=== PATIENT | female | born 1940 | race Caucasian/White ===

== ENCOUNTER 2016-11-20 09:49 | Inpatient (IN) | payer OTHER, MEDICARE ==
[~2016-11-20] VITALS: Ht 149.9 cm; Wt 48.1 kg
[2016-11-20] VITALS (7 sets, daily range): BP systolic 124–150; BP diastolic 59–71; PULSE 64–76; TEMP 36.6–37.1; O2SAT 92–96; Ht 149.9 cm; Wt 48.1 kg
[2016-11-20] MEDS ORDERED: TRAMADOL HCL 50 MG TAB PO PRN (12:30)
[2016-11-20] MEDS ORDERED: ALUMINUM/MAGNESIUM/SIMETH (MAALOX MAX) 30 ML UDC PO PRN (12:30)
[2016-11-20] MEDS ORDERED: MECLIZINE HCL 25 MG TAB PO PRN (12:30)
[2016-11-20] MEDS ORDERED: ONDANSETRON INJ 2 MG/ML 2 ML VIAL IV PRN (12:30)
[2016-11-20] MEDS ORDERED: POLYETHYLENE (MIRALAX) 17 GM PACK PO PRN (12:30)
[2016-11-20] MEDS ORDERED: MAGNESIUM HYDROXIDE SUSP 30 ML UDC PO PRN (12:30)
[2016-11-20] MEDS ORDERED: NITROGLYCERIN 0.4 MG SL PER TAB CHARGE SL PRN (12:30)
[2016-11-20] MEDS ORDERED: CLONAZEPAM 1 MG TAB PO PRN (12:30)
--- NOTE | 2016-11-20 12:52 | History and Physical ---
History & Physical Date & Time of Service: November 20, 2016 at 12:30 Chief Complaint: Pneumonia, Copd Exacerbation Primary Care Physician: Fer Armstrong History of Present Illness Source: patient, family, clinic records, hospital records Patient is a pleasant 76 y/o female, with PMHx of CAD s/p stent placement, tremors, vertigo, anxiety, and GERD, who was a direct admit from [facility] due to collapse left lower lung seen on CT and PNA. Patient presented to [facility] on 11/19 with complaints of fatigue, weight loss, poor appetite, and SOB over the last month or so. Patient was most recently placed on Doxycycline on November 10 for PNA treatment. Prior to that, patient was diagnosed w/ the flu on . She was prescribed Tamiflu, but never filled the prescription. Patient states she does not feel much improved since her admission at [facility] yesterday. She admits to a cough. She states she is coughing up sputum, but does not know the color because she swallows it. She admits to SOB; she does NOT wear O2 supplement at home. She denies h/o COPD or asthma. +night sweats; 2 episodes of night sweats last evening. Patient denies any fever, chills, lightheadedness, dizziness, vision changes, CP, palpitations, edema, wheezing, abdominal pain, nausea, vomiting, diarrhea, urinary symptoms, melena, numbness/ tingling, weakness, muscle/joint pain, anxiety/depression, active bleeding, or new skin discoloration/changes. Past Medical/Surgical History PMHx: CAD s/p stent placement tremors vertigo anxiety GERD Surgical Hx: partial thyroidectomy appendectomy cholecystectomy tonsillectomy Family History Father- lung cancer Social History Smoking Status: Unknown if Ever Smoked Marital Status: Housing status: lives with family Allergies Coded Allergies: Cephalexin (Verified Adverse Reaction, Unknown, Seizure, 11/20/16) Sulfa Antibiotics (Verified Adverse Reaction, Unknown, Seizure, 11/20/16) Physical Exam Vital Signs Date Time Temp Pulse Resp B/P Pulse Ox O2 Delivery O2 Flow Rate FiO2 11/20/16 11:45 36.6 72 16 132/66 95 Nasal Cannula 2.0 General Appearance: no apparent distress, + thin Head: normocephalic, atraumatic Eyes: normal inspection, PERRL ENT: hearing grossly normal Neck: supple Respiratory/Chest: no respiratory distress, no accessory muscle use, + decreased breath sounds (left lung base ) Cardiovascular: + systolic murmur, + pertinent finding (irregular rhythm- rate controlled) Abdomen/GI: normal bowel sounds, non tender, soft Back: normal inspection Extremities/Musculoskelatal: no calf tenderness, no pedal edema Neurologic/Psych: alert, normal mood/affect, oriented x 3 Skin: normal color, warm/dry, no rash Impression Assessment and Plan 76 y/o female, with PMHx of CAD s/p stent placement, tremors, vertigo, anxiety, and GERD, who was a direct admit from [facility] due to collapse left lower lung seen on CT and PNA: PNA/left lower lung collapse: - Admit to tele for cardiac monitoring - Continue IV Levaquin (started on 11/19 at [facility], last dose 11/19) - Continue Prednisone 40 mg roberto (last dose of 40 mg on 11/19 at [facility]) - O2 protocol, wean as tolerated- does NOT wear O2 at home - DuoNebs QID and q2 hrs PRN - Influenza negative per [facility] records - BCx obtained at [facility] on 11/19- NGTD per report - Obtain sputum cultures - f/u CXR tomorrow AM - Pulmonary consulted, appreciate recommendations - Obtain CBC and PRP- further management pending results -- Reviewed lab work from [facility]- WNL CAD s/p stent placement: ASA 81 mg daily, Simvastatin 40 mg daily 4.2 cm ascending aortic aneurysm and 3.4 cm aneurysmal dilatation to distal thoracic aorta: - Patient denies knowledge of this - Consult vascular surgery, appreciate recommendations Anxiety: Klonopin 1 mg BID PRN anxiety Tremors: Propranolol 80 mg daily, Primidone 50 mg BID Vertigo: Meclizine 25 mg TID PRN dizziness GERD: Protonix daily GI Prophylaxis: Maalox PRN, IV Zofran PRN, Colace and/or Milk of Mag PRN DVT prophylaxis: Heparin 5000 units SQ q12 hrs, DELFIN and SCDs Code Status: LEVEL I, FULL Dispo: From home, lives w/ family Level of Care Telemetry Advanced Directives Existing Living Will: No Existing Power of Secondary Special Education Teacher: No Resuscitation Status FULL RESUSCITATION VTE Prophylaxis VTE Risk Assessment Done? Y/N: Yes Risk Level: Moderate Given or contraindicated: Unfractionated heparin SQ, T.EAndie Santiago, SCD's
[2016-11-20 13:39] LABS: HEMATOCRIT 41.2 % (37-47); MEAN CELL VOLUME 89.8 fL (80-100); MEAN CORPUSCULAR HEMOGLOBIN 30.5 pg (25-34); MEAN PLATELET VOLUME 9.7 fL (7.4-10.4); PLATELET COUNT 195 K/uL (130-400); RED BLOOD COUNT 4.59 M/uL (4.2-5.4); WHITE BLOOD COUNT 13.74 K/uL (4.8-10.8)
[2016-11-20 13:50] LABS: INR 1.1 (0.9-1.1); PARTIAL THROMBOPLASTIN RATIO 1.1
[2016-11-20] MEDS ORDERED: LEVOFLOXACIN / D5W 750 MG in PREMIXED IN D5W 150 ML IV SCH (14:00)
[2016-11-20 14:15] LABS: CREATININE 0.89 mg/dl (0.60-1.20)
--- NOTE | 2016-11-20 16:12 | Surgery Consultation ---
Consultation Date of Service November 20, 2016. Chief Complaint ascending aortic and thoracic aortic aneurysm History of Present Illness The patient is a 76 year old female with multiple medical problems, admitted with pneumonia and atelectasis, seen in consultation today for ascending aortic aneurysm and distal thoracic aortic aneurysm noted incidentally on CT scan. Pt denies any prior knowledge and states she sees Dr Clemons regularly for cardiac care. Pt admits cough and malaise. Denies VARGHESE, fever, chest pain, SOB, abd pain, N/V, rest pain, claudication, other complaints. Vitals Vital Signs Past 12 Hours Date Time Temp Pulse Resp B/P Pulse Ox O2 Delivery O2 Flow Rate FiO2 11/20/16 15:47 36.9 75 16 150/70 94 Room Air 11/20/16 11:45 36.6 72 16 132/66 95 Nasal Cannula 2.0 Allergies Coded Allergies: Cephalexin (Verified Adverse Reaction, Unknown, Seizure, 11/20/16) Sulfa Antibiotics (Verified Adverse Reaction, Unknown, Seizure, 11/20/16) Problem List Medical Problems: (1) Collapse of left lung Surgical / Medical History Hx Cardiac Surgery: No Hx Abdominal Surgery: Yes (shailesh appy ) Hx Cancer Surgery: No Hx Thoracic Surgery: No Hx Orthopedic: Yes (back) HX Other Surgery: Yes (thyroid) Past Medical/Surgical History: COPD, Heart Disease, Hypertension Family History No hx of aneurysm per pt Social History Smoking Status: Unknown if Ever Smoked Hx Tobacco Use In Past Year?: No Hx Alcohol Use - Type & Amnt: Yes (beer once in a while ) Hx Substance Use -Type & Amnt: No Review of Systems Constitutional: + malaise, No chills, No fever Eyes: No visual changes ENMT: No sore throat Respiratory: + VIRAMONTES, + cough, No hemoptysis, No short of breath Cardiovascular: No chest pain, No edema, No intermittent claudication, No palpitations, No syncope Gastrointestinal: No abdominal pain, No nausea, No vomiting Neurologic: No dizziness, No headache, No numbness, No tingling Physical Exam Constitutional: General Apperance: heathly-appearing, well-nourished, well-developed Level of Distress: NAD Psychiatric: Mental Status: active & alert, normal mood, normal affect Orientation: oriented except where noted, to time, to place, to person Memory: recent memory normal, remote memory normal Head: normocephalic, atraumatic Eyes: EOM: EOMI ENMT: normal ENT inspection, hearing grossly normal Neck: supple, trachea midline Lungs: Auscultation: no rhonchi, decreased breath sounds Cardiovascular: Apical Impulse: not displaced Heart Auscultation: RRR, no rubs, no gallops Peripheral Pulses: Pulses: full and equal, in all extremities except if noted Bruits: none appreciated Carotid Pulse: normal on the left, normal on the right Brachial Pulses: normal on the left, normal on the right Radial Pulse: normal on the left, normal on the right Femoral Pulse: normal on the left, normal on the right Posterior Tibialis Pulse: decreased on the left, decreased on the right Dorsalis Pedis Pulse: decreased on the left, decreased on the right Abdomen: Bowel Sounds: normal Inspection & Palpation: soft, non-distended, no tenderness, guarding & rebound Musculoskeletal: normal strength (5/5 throughout), normal tone Extremities: Upper Right: no cyanosis, no edema, no varicosities Upper Left: no cyanosis, no edema, no varicosities Lower Right: no cyanosis, no edema, no varicosities Lower Left: no cyanosis, no edema, no varicosities Neurologic: Cranial Nerves: grossly intact Sensation: grossly intact Assessment and Plan ASSESSMENT and PLAN: ascending aortic aneurysm distal thoracic aortic aneurysm Pt reassured that these do not require surgical intervention presently. D /T large arteries, do recommend abd aortic US to r/o AAA as well. Otherwise, ascending and thoracic aortic aneurysms require f/u CT in 1 year in the office. Discussed with pt, she is agreeable. Please call if needed [email or web address].
--- NOTE | 2016-11-20 16:56 | PULMONARY CONSULTATION ---
DATE OF CONSULTATION: 11/20/2016 TIME: 4:10 p.m. HISTORY OF PRESENT ILLNESS: The patient was seen in room #229, bed #1. She is a 76-year-old female who is not a good historian. She was transferred here today from [facility]. She has not been feeling good for about a month. She states that she went to an urgent care several weeks ago. Reportedly, she was told that she had the flu. Subsequently, however, the flu test was negative. She went again and was told that she had pneumonia. This was approximately November 10. She was given a prescription for doxycycline. The patient was given some steroids as well. Apparently she had a nebulizer. The patient really cannot tell me any details of her illness of significance. She has been having some shortness of breath. She has had a cough. She does not expectorate any sputum at all. For the last 3 nights, she has had night sweats. She states she has been drenched. The chart says she has been losing weight. However, according to the patient, she weighs about the same now within a pound or 2 of what she did 6 months ago. The patient denies having prior lung problems before about a month ago. She states she has never smoked. Prior to that, she had not had any shortness of breath at all. She states she has had some chills but no fevers. The one thing that makes her cough worse is taking deep breaths. She admits that she has trouble swallowing pills. Sometimes it feels like they stick. I could not tell with certainty if she thought she might have swallowed any pills into her lungs. The patient denies ever having had tuberculosis or any exposure to tuberculosis. Her energy level has been very low. She thinks she is depressed. PAST SURGICAL HISTORY: 1. . 2. Partial thyroidectomy. 3. Appendectomy. 4. Cholecystectomy. 5. Tonsillectomy. 6. Back surgery. 7. Cardiac stent. PAST MEDICAL HISTORY: 1. Coronary artery disease. 2. Tremors 3. Vertigo. 4. Anxiety. 5. Depression. 6. GERD. 7. Childbirth x2. 8. Chronic constipation. SOCIAL HISTORY: The patient lives with her daughter. She is a nonsmoker. She has never smoked as noted. Alcohol use is rare. ALLERGIES: SULFA WHICH REPORTEDLY CAUSED THE SEIZURE AND KEFLEX CAUSED THE SEIZURE. I am not certain, however, that that was the exact side effect she had. THE PATIENT TELLS ME SHE IS ALSO ALLERGIC TO LOT OF ENVIRONMENTAL AGENTS INCLUDING GRASS AND DUST. She denied being told that she had asthma, however. FAMILY HISTORY: Mother in her 70s, had heart disease. Father in his 70s, had lung cancer. REVIEW OF SYSTEMS: Negative except for the above-mentioned complaints. Ten systems were reviewed. OCCUPATIONAL HISTORY: The patient worked in a textile factory for quite some time. Subsequently, she worked at a [employer]. MEDICATIONS AT HOME: I am uncertain what medication she was taking before she went to [facility], but it would appear that these would include the followin. Simvastatin 40 mg daily. 2. Propranolol LA 80 mg daily. 3. Aspirin 81 mg daily. 4. Tramadol 50 mg p.r.n. 5. Primidone 50 mg b.i.d. 6. Clonazepam 1 mg b.i.d. p.r.n. 7. Meclizine p.r.n. 8. Omeprazole 20 mg b.i.d. PHYSICAL EXAMINATION: GENERAL: The patient is a 76-year-old female who was pleasant. She was cooperative and alert. She seemed oriented, but she did not act as a good historian. HEENT: Pupils were reactive. Nasal passages were clear. Mouth exam showed some prominence in the upper jaw on the right side, which she states her dentist told her not to worry about and has been unchanged for years. NECK: Palpation of the neck reveals no definite lymph nodes. She has some fullness on the left side of her face, but she states were blocked salivary glands. There seemed to be some asymmetry, greater on the left than the right. CHEST: Normal expansion and development. VITAL SIGNS: Temperature is 36.9 and she has not had any fevers here. Heart rate was 75 per minute. The rhythm was regular. Blood pressure 150/70. Oxygen saturation was 94% on room air. LUNGS: Auscultation of the lung martin revealed them to be almost clear. I did not hear any wheezes, rales or rhonchi at present. At most, there was slightly decreased breath sounds at the left base. Respiratory rate was normal at 16. ABDOMEN: Soft. Bowel sounds were present. There was no tenderness to palpation, masses or organomegaly. EXTREMITIES: Showed no cyanosis, clubbing or edema. LABORATORY DATA: CBC today showed a white count of 13.74. Hemoglobin was 14. Platelets were 195,000. Labs from [facility] showed a white count yesterday was 13. INR was normal at 1.1. PTT was 26. Blood sugar was 130. The BUN was 15 with a creatinine of 0.8. Sodium 138, potassium 4.1, chloride 102, bicarbonate 26. Calcium was 8. Total protein was 6.2. Albumin was 3.1. Liver functions were normal. Troponin was negative. Flu test was negative. IMAGING DATA: EKG showed a normal sinus rhythm. She had some T-wave inversions in the precordial leads V1 through V5. Anterior ischemia was to be considered. CAT scan of the chest done at [facility] showed an area of atelectasis of the left lower lobe. She also had a small ascending aortic aneurysm of 4.2 cm. IMPRESSION: 1. Left lower lobe atelectasis. 2. Night sweats. 3. Malaise of undetermined etiology. COMMENTS AND RECOMMENDATIONS: The patient has not been feeling well for about a month. I do not know if she is a reliable historian. The CAT scan shows some loss of volume in the left lower lobe. This could be the result of her respiratory tract infection with inspissated secretions. She does not sound congested at all; however, when I listen to her. She has some swallowing problems especially with pills. Cannot exclude a foreign body. Cannot exclude an endobronchial obstruction such as neoplasm, although she has never smoked. There is a family history; however, of lung cancer. My suggestions at present would be to treat her with antibiotics and nebulizer treatments. If the area does not resolve, she likely would need bronchoscopy to rule out obstruction. We can continue to observe if she is having further night sweats or not. I am going to order a sed rate. Thank you for asking me to assist in her care.
--- NOTE | 2016-11-20 20:09 | DIAGNOSTIC IMAGING REPORT ---
Abdominal aortic ultrasound CLINICAL HISTORY: screening AAA, presence of thoracic and ascending aneurysms COMPARISON STUDY: None. FINDINGS: Normal caliber abdominal aorta measuring up to 2.6 cm. Iliac arteries are not well visualized due to overlying bowel gas. Mild calcified plaque within the abdominal aorta. IMPRESSION: No evidence for an abdominal aortic aneurysm. Electronically signed by: Erwin Mello M.D. 11/20/2016 8:07 PM Dictated Date/Time: 11/20/2016 8:06 PM
[2016-11-20] MEDS: ALBUT/IPRATROP 3MG/0.5MG NEB 3 ML VIAL INH SCH ×2 (20:16→23:41)
[2016-11-20] MEDS: PRIMIDONE 50 MG TAB PO SCH (20:33)
[2016-11-20] MEDS: SIMVASTATIN 40 MG TAB PO SCH (20:33)
[2016-11-20] MEDS: HEPARIN SOD 5000 UNIT/0.5 ML CARP SQ SCH (21:00)
[2016-11-21] VITALS (11 sets, daily range): BP systolic 116–167; BP diastolic 64–71; PULSE 62–87; TEMP 36.6–36.7; O2SAT 92–98
[2016-11-21 05:27] LABS: BASO % 0.1 %; BASO ABS # 0.01 K/uL (0-0.2); COMPLETE YES; HEMATOCRIT 39.4 % (37-47); IG% 0.3 %; LYMPH % 10.1 %; LYMPH ABS # 1.89 K/uL (1.2-3.4); MEAN CELL VOLUME 90.2 fL (80-100); MEAN CORPUSCULAR HEMOGLOBIN 30.7 pg (25-34); MEAN PLATELET VOLUME 9.8 fL (7.4-10.4); MONO % 7.1 %; NEUT % 82.4 %; PLATELET COUNT 213 K/uL (130-400); RED BLOOD COUNT 4.37 M/uL (4.2-5.4); WHITE BLOOD COUNT 18.78 K/uL (4.8-10.8)
[2016-11-21 05:51] LABS: BUN/CREATININE RATIO 29.5 (10-20); CALCIUM 9.1 mg/dl (8.5-10.1); CREATININE 0.74 mg/dl (0.60-1.20); POTASSIUM 4.2 mmol/L (3.5-5.1)
[2016-11-21] MEDS: ALBUT/IPRATROP 3MG/0.5MG NEB 3 ML VIAL INH SCH ×4 (06:58→19:05)
[2016-11-21] MEDS: ASPIRIN 81 MG ECTAB PO SCH (08:17)
[2016-11-21] MEDS: PROPRANOLOL HCL 80 MG TAB PO SCH (08:18)
[2016-11-21] MEDS: PANTOprazole SOD 40 MG TAB PO SCH (08:18)
[2016-11-21] MEDS: PRIMIDONE 50 MG TAB PO SCH ×2 (08:18→19:57)
[2016-11-21] MEDS: HEPARIN SOD 5000 UNIT/0.5 ML CARP SQ SCH ×2 (08:23→19:59)
--- NOTE | 2016-11-21 08:24 | DIAGNOSTIC IMAGING REPORT ---
CHEST ONE VIEW PORTABLE HISTORY: Left lower lobe PNA/collapse lung COMPARISON: Chest CT 11/20/2016. FINDINGS: The heart is normal in size. Mildly tortuous and calcified thoracic aorta. No pneumothorax. Left retrocardiac density is again noted. This is consistent with left lower lobe collapse. The right lung is clear. IMPRESSION: Left retrocardiac density is again noted and is consistent with left lower lobe collapse. Bronchoscopy is recommended for follow-up and to exclude an obstructing lesion. Electronically signed by: Erwin Mello M.D. 11/21/2016 8:23 AM Dictated Date/Time: 11/21/2016 8:21 AM
--- NOTE | 2016-11-21 09:36 | PULMONARY PROGRESS NOTE ---
DATE: 11/21/2016 DATE: 11/21/2016. TIME: 8:55 a.m. SUBJECTIVE: The patient feels much better. She had a good night. She did not have any significant night sweats. She feels stronger. Occupational therapy worked with the patient and they feel she is doing well. She has not had any significant shortness of breath. The patient states she has not expectorated any phlegm. She is not having any pains. OBJECTIVE: GENERAL: The patient appears comfortable at rest. VITAL SIGNS: Temperature is 36.7. No fevers have been noted since admission. She persists with tremors. Heart rate is 69 per minute. Blood pressure 152/71. Respiratory rate 20. Oxygen saturation is 96% on room air. LUNG: Camacho are clear. DATA: Chest x-ray done this morning again suggests left lower lobe atelectasis. LABORATORY DATA: White count today was elevated at 18.78. Yesterday it was 13.74. Hemoglobin is 13.4. Platelets 213,000. IMPRESSIONS: 1. Left lower lobe atelectasis. 2. Night sweats. 3. Malaise -- improved today. COMMENTS AND RECOMMENDATIONS: The patient clinically is improved. The x-ray however has not improved. We will recheck an x-ray tomorrow. If it is not improved she likely will need bronchoscopy on Wednesday.
--- NOTE | 2016-11-21 11:34 | Hospitalist Progress Note ---
Hospitalist Progress Note Date of Service November 21, 2016. (Ashely Pettit PA-C) Subjective Pt evaluation today including: conversation w/ patient, conversation w/ family , physical exam, chart review, lab review, review of studies Pain: None PO Intake: Good Voiding: no voiding problems The patient was seen and examined this morning. Patient reports feeling well. She feels much improved compared to yesterday. The patient denies any shortness of breath, cough, sputum production, or dyspnea with exertion. She denies any fevers sweats or chills, no chest pain. Her bowels moved for the first time in 3 weeks this morning. Additional Comments: Constitutional: No fever, chills, sweats, fatigue or weakness Eyes: No diplopia, no changes in vision ENT: No sore throat, tinnitus, or trouble swallowing Respiratory: No shortness of breath, No dyspnea at rest or on exertion, no cough or sputum Cardiovascular: No chest pain, palpitations, or flutter Abdomen: No pain, No constipation, No diarrhea, No nausea, No vomiting Musculoskeletal: No calf pain, No joint pain, No swelling Genitourinary : No dysuria or urinary frequency, No hematuria Neurologic: No numbness/tingling, no difficulty with ambulation, no sensory or motor deficits Psychiatric: No depression or anxiety symptoms Endocrine: No fatigue, No weight changes Integumentary: No itch, No rash (Ashely Pettit PA-C) Objective Vital Signs Date Time Temp Pulse Resp B/P Pulse Ox O2 Delivery O2 Flow Rate FiO2 11/21/16 08:07 36.7 69 20 152/71 96 Room Air 11/21/16 08:00 Room Air 11/21/16 06:58 68 16 95 Room Air 11/21/16 04:00 Room Air 11/21/16 03:53 36.6 65 18 151/69 97 Room Air 11/21/16 00:01 Room Air 11/20/16 23:41 64 16 92 Room Air 11/20/16 23:17 36.8 69 18 124/59 93 Room Air 11/20/16 20:17 76 16 96 Room Air 11/20/16 20:00 Room Air 11/20/16 19:02 37.1 71 18 144/71 95 Room Air 11/20/16 16:00 94 Room Air 2.0 11/20/16 16:00 94 Nasal Cannula 2.0 11/20/16 15:47 36.9 75 16 150/70 94 Room Air 11/20/16 11:45 36.6 72 16 132/66 95 Nasal Cannula 2.0 (Ashely Pettit PA-C) Physical Exam Notes: General: awake, alert, no apparent distress, sitting up in bed eating Head: Normocephalic, atraumatic ENT: PERRL, EOMI, no pharyngeal exudate, mucous membranes moist Chest: Clear to auscultation, on room air, no adventitious breath sounds Cardiac: Regular rate and rhythm, no murmur, no JVD, normal peripheral pulses, good capillary refill Abdominal: NABS x 4 quadrants, soft, nontender to palpation, no rebound, guarding or tenderness Extremities: Normal inspection, no peripheral edema or erythema, calfs nontender to palpation Psych: Normal mood and affect Neuro: AAO x 3, strength intact bilaterally and related 5/5, no motor deficits, speech is clear, no peripheral sensory deficits (Ashely Pettit PA-C) Laboratory Results Last 24 Hours Test 11/20/16 13:31 11/21/16 05:15 White Blood Count 13.74 K/uL 18.78 K/uL Red Blood Count 4.59 M/uL 4.37 M/uL Hemoglobin 14.0 g/dL 13.4 g/dL Hematocrit 41.2 % 39.4 % Mean Corpuscular Volume 89.8 fL 90.2 fL Mean Corpuscular Hemoglobin 30.5 pg 30.7 pg Mean Corpuscular Hemoglobin Concent 34.0 g/dl 34.0 g/dl RDW Standard Deviation 40.9 fL 41.8 fL RDW Coefficient of Variation 12.6 % 12.6 % Platelet Count 195 K/uL 213 K/uL Mean Platelet Volume 9.7 fL 9.8 fL Prothrombin Time 12.0 SECONDS Prothromb Time International Ratio 1.1 Activated Partial Thromboplast Time 28.7 SECONDS Partial Thromboplastin Ratio 1.1 Creatinine 0.89 mg/dl 0.74 mg/dl Est Creatinine Clear Calc Drug Dose 36.7 ml/min 44.1 ml/min Estimated GFR () 73.0 91.2 Estimated GFR (Non- 63.0 78.7 Neutrophils (%) (Auto) 82.4 % Lymphocytes (%) (Auto) 10.1 % Monocytes (%) (Auto) 7.1 % Eosinophils (%) (Auto) 0.0 % Basophils (%) (Auto) 0.1 % Neutrophils # (Auto) 15.50 K/uL Lymphocytes # (Auto) 1.89 K/uL Monocytes # (Auto) 1.33 K/uL Eosinophils # (Auto) 0.00 K/uL Basophils # (Auto) 0.01 K/uL Immature Granulocyte % (Auto) 0.3 % Immature Granulocyte # (Auto) 0.05 K/uL Erythrocyte Sedimentation Rate 17 mm/hr Sodium Level 140 mmol/L Potassium Level 4.2 mmol/L Chloride Level 107 mmol/L Carbon Dioxide Level 28 mmol/L Anion Gap 5.0 mmol/L Blood Urea Nitrogen 22 mg/dl BUN/Creatinine Ratio 29.5 Random Glucose 138 mg/dl Calcium Level 9.1 mg/dl (Ashely Pettit, AAKASH) Assessment and Plan 76 y/o female, with PMHx of CAD s/p stent placement, tremors, vertigo, anxiety, and GERD, who was a direct admit from [facility] due to collapse left lower lung seen on CT and PNA: PNA/left lower lung collapse: - Thoracic surgery on boad- appreciate recs, plan for recheck of CXR tomorrow and if no improvement will likely need bronchoscopy at that point. - CXR: IMPRESSION: Left retrocardiac density is again noted and is consistent with left lower lobe collapse. Bronchoscopy is recommended for follow-up and to exclude an obstructing lesion. - WBC has increased to 18 K with left shift - Continue IV Levaquin (started on 11/19 at [facility], last dose 11/19) - Continue Prednisone 40 mg taper - O2 protocol, wean as tolerated- does NOT wear O2 at home - DuoNebs QID and q2 hrs PRN - BCx obtained at [facility] on 11/19- NGTD per report - will need to get finalized report on cultures - Obtain sputum cultures now, follow results - Obtain CBC and PRP- further management pending results - It is suprising to me how well the patient feels today compared to her CXR findings and how she initially presented. It may be that antibiotics and steriods are giving her a boost of energy as well as finally being able to have a bowel movement. CAD s/p stent placement: ASA 81 mg daily, Simvastatin 40 mg daily 4.2 cm ascending aortic aneurysm and 3.4 cm aneurysmal dilatation to distal thoracic aorta: - Patient reports this morning she knew about hx of AAA, ultrasound was reviewed and showed a 2.6 cm aneurysmal dilatation. - Vascular surgery was consulted- no need for surgical intervention with size of the AAA- appreciate recs Anxiety: Klonopin 1 mg BID PRN anxiety Tremors: Propranolol 80 mg daily, Primidone 50 mg BID Vertigo: Meclizine 25 mg TID PRN dizziness GERD: Protonix daily GI Prophylaxis: Maalox PRN, IV Zofran PRN, Colace and/or Milk of Mag PRN DVT prophylaxis: Heparin 5000 units SQ q12 hrs, DELFIN and SCDs Code Status: LEVEL I, FULL Dispo: From home, lives w/ family, likely can discharge in 1-2 days pending repeat CXR. (Ashely Pettit, PA-C) I agree with PA assessment and plan and have seen and examined pt myself Pt resting comfortably in bed No distress noted States breathing better No shortness of breath Cont antibx at this time Reviewed labs VSS Appreciate vasc surgery recs at this time for AAA (Brando Lazo D.O.)
[2016-11-21] MEDS: SIMVASTATIN 40 MG TAB PO SCH (19:56)
[2016-11-22] VITALS (13 sets, daily range): BP systolic 143–169; BP diastolic 64–77; PULSE 57–69; TEMP 36.4–36.9; O2SAT 95–98
[2016-11-22 05:44] LABS: COMPLETE YES; EOS % 0.1 %; HEMATOCRIT 38.8 % (37-47); IG% 0.2 %; LYMPH % 22.3 %; LYMPH ABS # 2.99 K/uL (1.2-3.4); MEAN CELL VOLUME 90.4 fL (80-100); MEAN CORPUSCULAR HEMOGLOBIN 29.4 pg (25-34); MEAN CORPUSCULAR HGB CONC 32.5 g/dl (32-36); MEAN PLATELET VOLUME 9.8 fL (7.4-10.4); MONO % 8.5 %; NEUT % 68.9 %; PLATELET COUNT 217 K/uL (130-400); RED BLOOD COUNT 4.29 M/uL (4.2-5.4); WHITE BLOOD COUNT 13.41 K/uL (4.8-10.8)
[2016-11-22 06:13] LABS: BUN/CREATININE RATIO 33.8 (10-20); CALCIUM 8.8 mg/dl (8.5-10.1); CREATININE 0.66 mg/dl (0.60-1.20); POTASSIUM 3.8 mmol/L (3.5-5.1)
[2016-11-22] MEDS: ALBUT/IPRATROP 3MG/0.5MG NEB 3 ML VIAL INH SCH ×3 (06:50→11:57)
[2016-11-22] MEDS: PRIMIDONE 50 MG TAB PO SCH ×2 (08:37→19:43)
[2016-11-22] MEDS: ASPIRIN 81 MG ECTAB PO SCH (08:37)
[2016-11-22] MEDS: PANTOprazole SOD 40 MG TAB PO SCH (08:38)
[2016-11-22] MEDS: PROPRANOLOL HCL 80 MG TAB PO SCH (08:38)
[2016-11-22] MEDS: HEPARIN SOD 5000 UNIT/0.5 ML CARP SQ SCH ×2 (08:40→19:45)
--- NOTE | 2016-11-22 08:49 | Hospitalist Progress Note ---
Hospitalist Progress Note Date of Service November 22, 2016. (Ashely Pettit PA-C) Subjective Pt evaluation today including: conversation w/ patient, conversation w/ family , physical exam, chart review, lab review Pain: none PO Intake: good Voiding: no voiding problems The patient was seen and examined this morning. Patient reports feeling well. She is reporting a dry cough this morning. She denies any chest tightness, chest pain, lightheadedness, dizziness, fevers chills or sweats. She was just down for a chest x-ray. The patient slept well overnight and has no acute complaints. Additional Comments: Constitutional: No fever, sweats or chills Eyes: No diplopia, no worsening or blurred vision ENT: normal hearing, no trouble swallowing Respiratory: + Dry cough. No sputum, dyspnea at rest or on exertion Cardiovascular: No chest pain, tightness or palpitations Abdomen: No pain, nausea, vomiting, diarrhea or constipation Musculoskeletal: No joint pain, calf pain, swelling Neurologic: No weakness, numbness/tingling, or balance problems Psychiatric: No anxiety or depression Skin: No rash or itch (Ashely Pettit PA-C) Objective Vital Signs Date Time Temp Pulse Resp B/P Pulse Ox O2 Delivery O2 Flow Rate FiO2 11/22/16 07:08 36.6 57 20 169/77 95 Room Air 11/22/16 06:50 63 16 96 Room Air 11/22/16 04:05 36.4 62 18 143/64 95 Room Air 11/22/16 04:00 96 Room Air 11/22/16 00:00 36.5 64 20 159/66 96 Room Air 11/21/16 23:59 96 Room Air 11/21/16 20:00 96 Room Air 11/21/16 19:19 36.6 69 18 116/71 96 Room Air 11/21/16 19:05 87 16 96 Room Air 11/21/16 16:00 Room Air 11/21/16 15:45 74 16 98 Room Air 11/21/16 15:23 36.7 66 16 120/66 96 Room Air 11/21/16 12:25 36.6 69 18 167/64 98 Room Air 11/21/16 12:00 Room Air 11/21/16 11:04 62 16 92 Room Air (Ashely Pettit PA-C) Physical Exam Notes: General: awake, alert, no apparent distress Head: Normocephalic, atraumatic ENT: PERRL, EOMI, no pharyngeal exudate, mucous membranes moist Chest: Coarse breath sounds, slightly improved compared to yesterday, on room air, + dry cough Cardiac: Regular rate and rhythm, no murmur, no JVD, normal peripheral pulses, good capillary refill Abdominal: NABS x 4 quadrants, soft, nontender to palpation, no rebound, guarding or tenderness Extremities: Normal inspection, no peripheral edema or erythema, calfs nontender to palpation Psych: Normal mood and affect Neuro: AAO x 3, speech is clear, no peripheral sensory deficits (Ashely Pettit PA-C) Laboratory Results Last 24 Hours Test 11/22/16 05:00 White Blood Count 13.41 K/uL Red Blood Count 4.29 M/uL Hemoglobin 12.6 g/dL Hematocrit 38.8 % Mean Corpuscular Volume 90.4 fL Mean Corpuscular Hemoglobin 29.4 pg Mean Corpuscular Hemoglobin Concent 32.5 g/dl Platelet Count 217 K/uL Mean Platelet Volume 9.8 fL Neutrophils (%) (Auto) 68.9 % Lymphocytes (%) (Auto) 22.3 % Monocytes (%) (Auto) 8.5 % Eosinophils (%) (Auto) 0.1 % Basophils (%) (Auto) 0.0 % Neutrophils # (Auto) 9.24 K/uL Lymphocytes # (Auto) 2.99 K/uL Monocytes # (Auto) 1.14 K/uL Eosinophils # (Auto) 0.01 K/uL Basophils # (Auto) 0.00 K/uL RDW Standard Deviation 41.5 fL RDW Coefficient of Variation 12.7 % Immature Granulocyte % (Auto) 0.2 % Immature Granulocyte # (Auto) 0.03 K/uL Sodium Level 143 mmol/L Potassium Level 3.8 mmol/L Chloride Level 107 mmol/L Carbon Dioxide Level 29 mmol/L Anion Gap 7.0 mmol/L Blood Urea Nitrogen 22 mg/dl Creatinine 0.66 mg/dl Est Creatinine Clear Calc Drug Dose 49.5 ml/min Estimated GFR () 99.5 Estimated GFR (Non- 85.8 BUN/Creatinine Ratio 33.8 Random Glucose 110 mg/dl Calcium Level 8.8 mg/dl (Ashely Pettit PA-C) Assessment and Plan 76 y/o female, with PMHx of CAD s/p stent placement, tremors, vertigo, anxiety, and GERD, who was a direct admit from [facility] due to collapse left lower lung seen on CT and PNA: PNA/left lower lung collapse: - Thoracic surgery on boad- appreciate recs, CXR repeated this morning showing no acute change, will plan on bronchoscopy tomorrow. -The pt is NPO after midnight - WBC back down to 13 K with left shift - Continue IV Levaquin (started on 11/19 at [facility], day #4) - Continue Prednisone 40 mg taper (day 2 of 40 mg daily) - DuoNebs QID and q2 hrs PRN - BCx obtained at [facility] on 11/19- NGTD per report - will need to get finalized report on cultures CAD s/p stent placement: ASA 81 mg daily, Simvastatin 40 mg daily 4.2 cm ascending aortic aneurysm and 3.4 cm aneurysmal dilatation to distal thoracic aorta: - Patient reports this morning she knew about hx of AAA, ultrasound was reviewed and showed a 2.6 cm aneurysmal dilatation. - Vascular surgery was consulted- no need for surgical intervention with size of the AAA- appreciate recs Anxiety: Klonopin 1 mg BID PRN anxiety Tremors: Propranolol 80 mg daily, Primidone 50 mg BID Vertigo: Meclizine 25 mg TID PRN dizziness GERD: Protonix daily GI Prophylaxis: Maalox PRN, IV Zofran PRN, Colace and/or Milk of Mag PRN DVT prophylaxis: Heparin 5000 units SQ q12 hrs, DELFIN and SCDs Code Status: LEVEL I, FULL Dispo: From home, lives w/ family, likely can discharge in tomorrow afternoon bronchoscopy and is doing well, it's possible that she may stay through tomorrow night. The patient will need to continue Levaquin antibiotic for a 7- 10 day course. (Ashely Pettit PA-C) I agree with PA assessment and plan and have seen and examined pt myself Resting comfortably in bed Labs and vitals reviewed CXR reviewed No distress noted Admitted with PNA and lung collapse Repeat CXR no change Pulm consulted For Bronch in AM (Brando Lazo D.O.)
--- NOTE | 2016-11-22 09:40 | DIAGNOSTIC IMAGING REPORT ---
CHEST 2 VIEWS ROUTINE CLINICAL HISTORY: Follow up left lower lobe atelectasis. COMPARISON STUDY: Chest CT November 20, 2016 and chest radiograph November 21, 2016 FINDINGS: Left hemithorax volume loss is again noted with a retrocardiac opacity consistent with left lower lobe collapse. This appears similar to prior exam. Right lung is clear. There is no evidence of pulmonary edema. Cardiac size is normal. IMPRESSION: No change in left hemithorax volume loss with a retrocardiac opacity consistent with left lower lobe collapse. Electronically signed by: Bill Castillo M.D. 11/22/2016 9:39 AM Dictated Date/Time: 11/22/2016 9:37 AM
[2016-11-22] MEDS ORDERED: ALBUT/IPRATROP 3MG/0.5MG NEB 3 ML VIAL INH PRN (12:15)
[2016-11-22] MEDS ORDERED: LEVOFLOXACIN / D5W 750 MG in PREMIXED IN D5W 150 ML IV SCH (14:00)
--- NOTE | 2016-11-22 15:02 | PULMONARY PROGRESS NOTE ---
DATE: 11/22/2016 TIME: 11:30 a.m. SUBJECTIVE: The patient feels well. She has been ambulating in the hallways without difficulty. Her cough has been mild. There has been no sputum production or hemoptysis. OBJECTIVE: GENERAL: The patient appeared comfortable. VITAL SIGNS: She is afebrile at 36.6, heart rate is 57, blood pressure is elevated at 169/77. Her blood pressures have overall been a little higher than desirable. LUNGS: Lung martin were clear bilaterally. No wheezes, rales or rhonchi were heard. Saturations were 96% on room air. IMPRESSIONS: 1. Left lower lobe atelectasis. 2. Night sweats - improved. COMMENTS: The patient clinically is doing well. The x-ray done today; however, was reviewed by myself. It shows persistence of volume loss in the retrocardiac area with some left lower lobe atelectasis. In light of the fact that it has not improved, we will recommend bronchoscopy. Dr. Soriano will be on tomorrow. I am hopeful this will be able to get on to his schedule. The patient has been ordered to be n.p.o. overnight. I would anticipate that if there are no trouble with the scope she should be able to be discharged later in the day if everything happens as planned.
[2016-11-22] MEDS: IPRATROPIUM BROMIDE/ALBUTEROL respimat INH INH SCH ×3 (16:41→19:42)
[2016-11-22] MEDS: SIMVASTATIN 40 MG TAB PO SCH (19:43)
[2016-11-23] VITALS (22 sets, daily range): BP systolic 129–231; BP diastolic 50–98; PULSE 54–74; TEMP 36.3–36.9; O2SAT 95–100
[2016-11-23 06:45] LABS: BASO % 0.1 %; BASO ABS # 0.01 K/uL (0-0.2); COMPLETE YES; EOS % 0.1 %; HEMATOCRIT 39.2 % (37-47); IG% 0.3 %; LYMPH % 28.8 %; LYMPH ABS # 3.39 K/uL (1.2-3.4); MEAN CELL VOLUME 90.3 fL (80-100); MEAN CORPUSCULAR HEMOGLOBIN 30.4 pg (25-34); MEAN CORPUSCULAR HGB CONC 33.7 g/dl (32-36); MEAN PLATELET VOLUME 9.9 fL (7.4-10.4); MONO % 11.8 %; NEUT % 58.9 %; PLATELET COUNT 215 K/uL (130-400); RED BLOOD COUNT 4.34 M/uL (4.2-5.4); WHITE BLOOD COUNT 11.78 K/uL (4.8-10.8)
[2016-11-23 07:14] LABS: BUN/CREATININE RATIO 21.8 (10-20); CALCIUM 8.9 mg/dl (8.5-10.1); CREATININE 0.7 mg/dl (0.60-1.20); POTASSIUM 4.1 mmol/L (3.5-5.1)
[2016-11-23] MEDS ORDERED: HydrALAZINE HCL 20 MG/ML VIAL IV. STA (07:39)
[2016-11-23] MEDS: PRIMIDONE 50 MG TAB PO SCH (07:44)
[2016-11-23] MEDS: PANTOprazole SOD 40 MG TAB PO SCH (07:45)
[2016-11-23] MEDS ORDERED: HydrALAZINE HCL 20 MG/ML VIAL IV. PRN (07:45)
--- NOTE | 2016-11-23 07:53 | History & Physical Bridge Note ---
H&P Re-Evaluation Bridge Note: I have examined the patient, reviewed the History & Physical and in the interval since the performance of the History & Physical I have noted the following changes of clinical significance: No changes noted
--- NOTE | 2016-11-23 07:54 | Procedure Note ---
Pre-Mod Sedation Assessment General Date of Moderate Sedation: November 23, 2016. Vital Signs: Vital Signs Past 12 Hours Date Time Temp Pulse Resp B/P Pulse Ox O2 Delivery O2 Flow Rate FiO2 11/23/16 07:27 210/98 11/23/16 07:26 204/73 11/23/16 07:20 36.9 60 18 158/56 95 Nasal Cannula 2.0 11/23/16 04:00 Room Air 11/23/16 03:52 36.9 60 18 158/56 95 Room Air 11/23/16 00:40 60 181/67 11/23/16 00:04 36.6 65 18 176/75 95 Room Air 11/23/16 00:00 Room Air 11/22/16 20:00 97 Room Air Review Cardiovascular: regular rate, rhythm, no edema, no gallop, no JVD, no murmur, normal peripheral pulses Abdomen: normal bowel sounds, non tender, soft, no organomegaly, no pulsatile mass, normal rectal exam, occult blood negative Lungs: + pertinent finding (decreased BS LLL posterior subsegement ) Airway Class: II Pre-Sedation Airway Assessment Oral Cavity: WNL Able to Visualize Vocal Cords: Yes Short Thick Neck: No Hx of Sleep Apnea: No Smoking Status: Never Smoker Mallampati Classification: Class II ASA Classification: Class II Procedure Planning Contraindications-for Mod Sed: None Yes Notes The planned sedation has been discussed with the patient and consent obtained. I have identified the patient, determined the appropriateness of sedation and have assessed the patient immediately prior to the procedure. All medicine(s) and interventions are by my order.
[2016-11-23] MEDS ORDERED: NURSING VERBAL MED ORDER ONE ×2 (08:30→09:00)
--- NOTE | 2016-11-23 08:32 | Progress Note ---
Progress Note Date of Service November 23, 2016. Progress Note Abdominal usn showed no AAA. Will see her in one year with a follow up CT. Thank you very much for letting me participate in the care of this patient.
--- NOTE | 2016-11-23 08:32 | Procedure Note ---
Post-Moderate Sedation Plan General Date of Moderate Sedation November 23, 2016. Vital Signs: Vital Signs Past 12 Hours Date Time Temp Pulse Resp B/P Pulse Ox O2 Delivery O2 Flow Rate FiO2 11/23/16 08:25 74 14 157/81 98 Nasal Cannula 8.0 11/23/16 08:20 73 18 176/79 99 Nasal Cannula 8.0 11/23/16 08:15 67 18 185/77 100 Nasal Cannula 8.0 11/23/16 08:10 64 18 204/78 100 Nasal Cannula 8.0 11/23/16 08:05 69 18 216/95 100 Nasal Cannula 8.0 11/23/16 08:03 36.9 60 18 210/98 95 Nasal Cannula 2.0 11/23/16 08:00 64 18 231/86 100 Nasal Cannula 8.0 11/23/16 07:27 210/98 11/23/16 07:26 204/73 11/23/16 07:20 36.9 60 18 158/56 95 Nasal Cannula 2.0 11/23/16 04:00 Room Air 11/23/16 03:52 36.9 60 18 158/56 95 Room Air 11/23/16 00:40 60 181/67 11/23/16 00:04 36.6 65 18 176/75 95 Room Air 11/23/16 00:00 Room Air Review - Discharge Plan Post Moderate Sedation Plan: On clinical assessment, the patient appears to have tolerated the conscious sedation without complications. Patient is recovering as anticipated. Patient will be transferred back to her inpatient room and monitored
--- NOTE | 2016-11-23 08:35 | Bronchoscopy Procedure Note ---
Bronchoscopy Procedure Note Procedure: Bronchoscopy, conscious sedation, LLL BAL, Intra-bronchial forceps bx Consent: Obtained through the patient placed into the chart Pre-procedural diagnosis: LLL atelectasis with lobar collapse Post-procedural diagnosis: LLL atelectasis with lobar collapse Start time: 805 End time: 825 Total time: 20mins Analgesia: 2% liquid lidocaine: Via nebulizer 4% gel lidocaine: Via right naris 2% liquid lidocaine: Via bronchoscopy Sedation: Versed IV: 3 mg Fentanyl IV: 75 g Procedure: The [employer] video bronchoscope was used for this procedure and passed down through the right naris Right naris/posterior naris/posterior oropharynx: Anatomically within normal limits Glottis: Anatomically within normal limits Vocal cords: Proper abduction and abduction, anatomically within normal limits Subglottis/trachea/Carol: Anatomically within normal limits Right bronchial tree: Right mainstem bronchus: Anatomically within normal limits Right upper lobe: Anatomically within normal limits Bronchus intermedius: Anatomically within normal limits Right middle lobe: Anatomically within normal limits Right lower lobe: Anatomically within normal limits Findings: No significant findings noted Left bronchial tree: Left mainstem bronchus: Anatomically within normal limits Left upper lobe: Anatomically within normal limits Lingula: Anatomically within normal limits Left lower lobe: Anatomically within normal limits Findings: No significant findings noted Bronchial alveolar lavage: 80cc LLL with 40cc returned Intra-Bronchial Forcep Bx: LLL x7 EBL: 5cc Complications: Controlled Bleeding Follow-up: Returned to room 229-1 and monitored post procedure with f/u CXR
[2016-11-23] MEDS ORDERED: SODIUM CHLORIDE 0.9% 1000ML 1,000 ML IV SCH (08:45)
[2016-11-23] MEDS ORDERED: FENTANYL CITRATE INJ 50 MCG/1 ML 2 ML VIAL IV ONE ×2 (08:45→14:24)
[2016-11-23] MEDS ORDERED: MIDAZOLAM HCL 5 MG/ML 1 ML VIAL IV ONE ×2 (08:45→14:24)
[2016-11-23] MEDS: HEPARIN SOD 5000 UNIT/0.5 ML CARP SQ SCH (08:52)
[2016-11-23] MEDS: ASPIRIN 81 MG ECTAB PO SCH (08:52)
[2016-11-23] MEDS: IPRATROPIUM BROMIDE/ALBUTEROL respimat INH INH SCH ×2 (09:00→13:46)
[2016-11-23] MEDS ORDERED: LISINOPRIL 20 MG TAB PO SCH (09:00)
[2016-11-23] MEDS ORDERED: PROPRANOLOL HCL 20 MG TAB PO SCH (09:00)
--- NOTE | 2016-11-23 09:45 | DIAGNOSTIC IMAGING REPORT ---
CHEST ONE VIEW PORTABLE CLINICAL HISTORY: s/p intra-bronchial bx of the LLL via bronchoscopy COMPARISON STUDY: 11/22/2016 FINDINGS: No evidence pneumothorax status post bronchoscopy. Increase in density left base possibly secondary to post procedural atelectasis headache and/or contusion-type change. IMPRESSION: No evidence for pneumothorax. Mild increased density left base most likely postprocedural Electronically signed by: Dony Simon M.D. 11/23/2016 9:44 AM Dictated Date/Time: 11/23/2016 9:43 AM
[2016-11-23] MEDS ORDERED: CLON1TAB3 PO (12:36)
[2016-11-23] MEDS ORDERED: MYS50 PO (12:36)
[2016-11-23] MEDS ORDERED: PROP80TA30 PO (12:36)
[2016-11-23] MEDS ORDERED: PANT40TA PO (12:36)
[2016-11-23] MEDS ORDERED: ANT25 PO (12:36)
[2016-11-23] MEDS ORDERED: LEVO1TAB35 PO (12:44)
[2016-11-23] MEDS ORDERED: PRED10TA PO (12:44)
[2016-11-23] MEDS ORDERED: LSN20 PO (12:44)
--- NOTE | 2016-11-23 13:05 | Discharge Instructions ---
Discharge Instructions Date of Service November 23, 2016. Admission Reason for Admission: Pneumonia, Copd Exacerbation Discharge Discharge Diagnosis / Problem: Pneumonia, left lower lobe collapse Discharge Goals Goal(s): Decrease discomfort, Improve function, Diagnostic testing, Therapeutic intervention Activity Recommendations Activity Limitations: resume your previous activity (as tolerated) . Instructions / Follow-Up Instructions / Follow-Up You were admitted to [facility] from [facility] presenting with pneumonia and collapse of the left lower lobe of your lung as seen by CT scan. You were treated with antibiotics and oral steroids. Prior to discharge, you underwent a bronchoscopy which did not show any significant findings. The results of the biopsies taken during the procedure are pending. You will need to follow up with pulmonology, but you are otherwise stable for discharge home. Recommendations: *Have your blood pressure checked once a day or at least 3 times a week until you follow up with your primary care provider. Write the blood pressures down so that your PCP has a better idea of how your blood pressure has been trending. Medications: *Please take Levaquin 750 mg by mouth every other day for 4 doses to complete your antibiotic course, as you received 3 doses while inpatient. Your next dose is due 11/24. *Please take lisinopril 20 mg by mouth daily for your blood pressure and heart. You will need to follow up with your primary care provider who may need to adjust this medication or add other agents to control your blood pressure. *You will complete a Prednisone taper as follows, with the taper starting on : -Take 2 tablets (20 mg total) by mouth daily for 3 days, then -Take 1 tablet (10 mg total) by mouth daily for 3 days, then STOP. *Continue your other home medications as prescribed. Follow up: *Follow up with Dr. Odom of pulmonology in 1-2 weeks regarding your lung collapse and persistent shortness of breath. *Follow up with your primary care provider in 1 week regarding your hospital stay and changes to your medications, as well as to follow up on your blood pressure. Please seek medical attention if you experience fevers, chills, sweats, chest pain, worsening shortness of breath, nausea, vomiting, lightheadedness, loss of consciousness, numbness, or tingling. Current Hospital Diet Patient's current hospital diet: AHA Diet (Heart Healthy) Discharge Diet Recommended Diet: AHA Diet (Heart Healthy) Procedures Procedures Performed: Bronchoscopy Pending Studies Studies pending at discharge: yes List of pending studies: Bronchial washings: fungal smear and culture, acid fast stain, mycobacterium culture, Gram stain, bronchoalveolar lavage culture Sputum Gram stain and culture Medical Emergencies . Who to Call and When: Medical Emergencies: If at any time you feel your situation is an emergency, please call 911 immediately. . Non-Emergent Contact Non-Emergency issues call your: Primary Care Provider, [employer] . Past History Medical & Surgical History: (1) Pneumonia (2) Collapse of left lung . "Provider Documentation" section prepared by Sujatha Gunter. . VTE Core Measure Inpt VTE Proph given/why not?: Unfractionated heparin SQ, T.E.D. Stockings, SCD 's
[2016-11-23] MEDS ORDERED: LIDOCAINE HCL 2% LOCAL 50ML VIAL INFIL ONE (14:24)
[2016-11-23] MEDS ORDERED: LIDOCAINE 4% INH SOLN 4 ML BTL ONE (14:24)
--- NOTE | 2016-11-23 14:26 | Discharge Summary ---
Discharge Summary Date of Service November 23, 2016. (Sujatha Gunter PA-C) Discharge Summary Admission Date: November 20, 2016 at 11:32 Discharge Date: November 23, 2016 Discharge Disposition: Home Principal Diagnosis: Pneumonia, left lower lobe collapse Procedures: Bronchoscopy: The Olympus video bronchoscope was used for this procedure and passed down through the right naris Right naris/posterior naris/posterior oropharynx: Anatomically within normal limits Glottis: Anatomically within normal limits Vocal cords: Proper abduction and abduction, anatomically within normal limits Subglottis/trachea/Carol: Anatomically within normal limits Right bronchial tree: Right mainstem bronchus: Anatomically within normal limits Right upper lobe: Anatomically within normal limits Bronchus intermedius: Anatomically within normal limits Right middle lobe: Anatomically within normal limits Right lower lobe: Anatomically within normal limits Findings: No significant findings noted Left bronchial tree: Left mainstem bronchus: Anatomically within normal limits Left upper lobe: Anatomically within normal limits Lingula: Anatomically within normal limits Left lower lobe: Anatomically within normal limits Findings: No significant findings noted Consultations: Pulmonology--Dr. Odom/Dr. Soriano Vascular surgery--Dr. Otero (Sujatha Gunter PA-C) Medication Reconciliation New Medications: Levofloxacin (Levaquin) 750 Mg Tab 750 MG PO Q2D for 7 Days, #4 TAB Take 1 tablet by mouth every other day. First dose 11/24. Prednisone Tab (Prednisone) 10 Mg Tab 10 MG PO UD for 6 Days, #9 TAB Take 2 tablets daily for 3 days, then 1 tablet daily for 3 days, then stop. Lisinopril (Lisinopril) 20 Mg Tab 20 MG PO QAM for 30 Days, #30 TAB Continued Medications: Clonazepam (Klonopin) 1 Mg Tab 1 MG PO BID PRN for Anxiety, TAB Meclizine HCl (Meclizine HCl) 25 Mg Tab 25 MG PO TID PRN for Dizziness or Vertigo Pantoprazole (Protonix) 40 Mg Tab 40 MG PO DAILY, #30 Primidone (Primidone) 50 Mg Tab 50 MG PO BID Propranolol HCl (Propranolol HCl) 80 Mg Tab 80 MG PO QD Referrals At Discharge Follow up Referrals: Family Practice Referral - Within 1 Week with Erich Armstrong [employer] [employer] [facility] [employer] Referral - Within 1-2 Weeks with Earl Odom DO Discharge Exam Patient reports feeling well after bronchoscopy this morning. She does feel somewhat fatigued from the procedure. She complains of a nonproductive cough but otherwise denies any other complaints. The patient denies fevers, chills, sweats, chest pain, palpitations, claudication, wheezing, shortness of breath, nausea, vomiting, abdominal pain, dysuria, hematuria, urinary retention, paralysis, weakness, numbness and tingling. Review of Systems: Constitutional: + fatigue, No chills, No fever, No sweats Eyes: No diplopia, No eye pain, No worsening of vision ENT: No hearing loss, No sore throat, No trouble swallowing Respiratory: + cough, No shortness of breath, No sputum, No wheezing Cardiovascular: No chest pain, No claudication, No palpitations Abdomen: No nausea, No pain, No vomiting Musculoskeletal: No calf pain, No joint pain, No muscle pain Genitourinary - Female: No dysuria, No hematuria, No urinary retention Neurologic: No numbness/tingling, No paralysis, No weakness Integumentary: No color change, No itch, No rash Physical Exam: General Appearance: WD/WN, no apparent distress Eyes: normal inspection, PERRL, EOMI ENT: normal ENT inspection, hearing grossly normal, pharynx normal Neck: supple, no JVD, trachea midline Respiratory/Chest: lungs clear, normal breath sounds, no respiratory distress, + decreased breath sounds Cardiovascular: regular rate, rhythm, no gallop, no murmur Abdomen / GI: normal bowel sounds, non tender, soft Extremities: normal inspection, no calf tenderness, no pedal edema Neurologic/Psychiatric: alert, normal mood/affect, oriented x 3 Skin: normal color, warm/dry, no rash (Sujatha Gunter ., PA-C) Hospital Course 76 y/o female with a history of CAD s/p stent placement, tremors, vertigo, anxiety, and GERD, who was a direct admit from [facility] due to collapse left lower lung seen on CT and PNA: PNA/left lower lung collapse--stable - Admitted to telemetry. No acute events overnight patient remained in sinus rhythm heart rate 60s to 80s - [facility] [employer] following appreciate recs: Bronchoscopy on 11/23. No significant findings. Biopsies and bronchial washings pending. - CXR 11/23: No evidence for pneumothorax. Mild increased density left base, most likely postprocedural - WBC improved to 11.78 from 13 - Continue Levaquin 750 mg PO q48h. Total of seven-day course. Received 3 doses while inpatient - Continue Prednisone taper: 20 mg x 3 days, 10 mg x 3 days, then stop - DuoNebs QID and q2 hrs PRN - BCx obtained at [facility] on 11/19- NGTD CAD s/p stent placement -Continue ASA 81 mg daily, Simvastatin 40 mg daily 4.2 cm ascending aortic aneurysm and 3.4 cm aneurysmal dilatation to distal thoracic aorta: - Vascular surgery was consulted- no need for surgical intervention with size of the aneurysm F/u in [address] chest - Abdominal ultrasound negative for AAA Anxiety -Continue Klonopin 1 mg BID PRN anxiety Tremors -Continue Propranolol 80 mg daily, Primidone 50 mg BID Vertigo -Continue Meclizine 25 mg TID PRN dizziness GERD -Continue Protonix 40 mg PO qd DVT prophylaxis -Heparin 5000 units SQ q12 hrs -DELFIN and SCDs Code Status -Level I, FULL RESUSCITATION STATUS Dispo -From home, lives w/ family. return to home on d/c Total Time Spent: Greater than 30 minutes This includes examination of the patient, discharge planning, medication reconciliation, and communication with other providers. (Sujatha Gunter ., PA-C) I agree with PA assessment and plan and have seen and examined pt myself Resting comfortably in bed No distress noted S/P bronch Satting well on RA Labs reviewed Discharge on antibx Appreciate pulm recs Stable for discharge home (Brando Lazo, D.O.) Discharge Instructions Please refer to the electronic Patient Visit Report (Discharge Instructions) for additional information. (Sujatha Gunter ., PA-C) Additional Copies To ERICH ARMSTRONG
[2016-11-25 13:26] LABS: QUANTIF TB AG-NIL <0.00 IU/ML; QUANTIFERON NIL 0.04 IU/ML
== END 2016-11-23 14:25 | disposition home or self-care (01) | DRG 166 ==
LOC: C.2T 11:32
PROVIDERS: ADMIT Hospitalist; ATTEND Hospitalist
PROC: 0B9J8ZX Drainage of Left Lower Lung Lobe, Via Natural or Artificial Opening Endoscopic, Diagnostic (ICD-10-PCS; principal; 2016-11-23)
DX: J98.19 Other pulmonary collapse (principal); J18.9 Pneumonia, unspecified organism; J98.11 Atelectasis; R61 Generalized hyperhidrosis; R53.81 Other malaise; I71.2 Thoracic aortic aneurysm, without rupture; I25.10 Atherosclerotic heart disease of native coronary artery without angina pectoris; K21.9 Gastro-esophageal reflux disease without esophagitis; R25.1 Tremor, unspecified; R42 Dizziness and giddiness; K59.09 Other constipation; F41.9 Anxiety disorder, unspecified; F32.9 Major depressive disorder, single episode, unspecified; Z95.5 Presence of coronary angioplasty implant and graft; Z79.82 Long term (current) use of aspirin; Z79.891 Long term (current) use of opiate analgesic; Z79.899 Other long term (current) drug therapy

== ENCOUNTER → 2016-12-03 | Outpatient (CLI) | payer OTHER, MEDICARE ==
[~2016-12-03] MED LIST: ANT25 PO; CLON1TAB3 PO; LSN20 PO; MYS50 PO; PANT40TA PO; PROP80TA30 PO
--- NOTE | 2016-12-03 14:37 | DIAGNOSTIC IMAGING REPORT ---
CHEST 2 VIEWS ROUTINE HISTORY: J18.9 Pneumonia c/o pain in right mid back when taking deep breath. COMPARISON: Chest 11/23/2016. FINDINGS: Cardiac silhouette is normal in size. No pleural effusions. No pneumothorax. Cholecystectomy. Mildly tortuous descending thoracic aorta. The left lower lobe opacity/collapse appears to have improved in the interval. The right lung is clear. IMPRESSION: Interval improvement within the left lower lobe consolidation/collapse Electronically signed by: Erwin Mello M.D. 12/03/2016 2:36 PM Dictated Date/Time: 12/03/2016 2:29 PM
== END | disposition home or self-care (01) ==
LOC: C.RAD1850 14:05
PROVIDERS: ATTEND Physician Assistant Medical
DX: J18.9 Pneumonia, unspecified organism (principal)